=== PATIENT | female | born 1975 | race Two or more races ===

== ENCOUNTER 2024-11-19 09:34 | Emergency (ER) | payer OTHER ==
[~2024-11-19] VITALS: Ht 162.6 cm; Wt 95.3 kg
[2024-11-19] MEDS ORDERED: SYNTHROID175 MCG PO (09:51)
[2024-11-19] MEDS ORDERED: PROAIR RESPICL90 MCG (09:51)
[2024-11-19] MEDS ORDERED: TUSSIN DM LIQU118 ML (09:52)
[2024-11-19] MEDS ORDERED: LEVALBUTEROL HCL 1.25 MG/3 ML SOLUTION IH STA (11:01)
[2024-11-19] MEDS ORDERED: HYDROCODONE/CHLORPHEN P-STIREX 5 ML ML PO STA (11:02)
[2024-11-19] MEDS ORDERED: BUDESONIDE 0.5 MG/2 ML AMPUL.NEB IH STA (11:02)
[2024-11-19] MEDS ORDERED: METHYLPREDNISOLONE SOD SUCC 125 MG VIAL IV STA (11:03)
[2024-11-19] MEDS ORDERED: METHYLPREDNISOLONE SOD SUCC 125 MG VIAL ONE (11:11)
[2024-11-19] MEDS ORDERED: LEVALBUTEROL HCL 1.25 MG/3 ML SOLUTION IH ONE (11:29)
[2024-11-19] MEDS ORDERED: BUDESONIDE 0.5 MG/2 ML AMPUL.NEB IH ONE (11:29)
[2024-11-19 11:33] LABS: HEMATOCRIT 37.2 % (36.0-45.00); HEMOGLOBIN 12.6 g/dL (12.0-15.00); MEAN CORPUSCULAR HEMOGLOBIN 30.5 pg (27.00-32.0); MEAN CORPUSCULAR HGB CONC 33.9 g/dl (32.0-36.0); PLATELET COUNT 240 K/uL (150-450); RED BLOOD COUNT 4.14 M/uL (4.00-6.00)
== END 2024-11-19 13:08 | disposition home or self-care (01) ==
LOC: ER 09:36
PROVIDERS: General Practice
DX: J45.909 Unspecified asthma, uncomplicated (principal); Z88.2 Allergy status to sulfonamides; Z88.5 Allergy status to narcotic agent

== ENCOUNTER → 2024-11-21 | Emergency (ER) | payer OTHER ==
[~2024-11-21] VITALS: Ht 162.6 cm; Wt 95.3 kg
[~2024-11-21] MED LIST: KETOROLAC TROMETHAMINE 30 MG VIAL IM ONE; KETOROLAC TROMETHAMINE 60 MG VIAL IM ONE; PROAIR RESPICL90 MCG; SYNTHROID175 MCG PO; TUSSIN DM LIQU118 ML
== END | disposition home or self-care (01) ==
LOC: ER 12:19
DX: B02.8 Zoster with other complications (principal); Z88.2 Allergy status to sulfonamides; Z87.09 Personal history of other diseases of the respiratory system

== ENCOUNTER 2024-11-23 10:33 | Outpatient (CLI) | payer OTHER ==
[~2024-11-23 10:33] MED LIST changes: -KETOROLAC TROMETHAMINE 30 MG VIAL IM ONE; -KETOROLAC TROMETHAMINE 60 MG VIAL IM ONE
== END 2024-11-23 10:40 | disposition home or self-care (01) ==
LOC: RAD 10:33
PROVIDERS: ATTEND Internal Medicine Pulmonary Disease
DX: J01.90 Acute sinusitis, unspecified (principal); M18.9 Osteoarthritis of first carpometacarpal joint, unspecified

== ENCOUNTER 2024-12-16 13:38 | Outpatient (CLI) | payer OTHER | END 2024-12-16 13:44 | disposition home or self-care (01) | LOC: MAMO-SONO 13:38 | PROVIDERS: ATTEND Obstetrics & Gynecology Gynecology | DX: Z12.31 Encounter for screening mammogram for malignant neoplasm of breast (principal) ==